=== PATIENT | male | born 1930 | race Caucasian/White ===

== ENCOUNTER 2017-01-30 16:05 | Inpatient (IN) | payer MEDICARE, OTHER ==
[~2017-01-30] VITALS: Ht 177.8 cm; Wt 67.1 kg
[2017-01-30 16:30] VITALS: BP 121/75
[2017-01-30] MEDS ORDERED: MAG HYDROX/AL HYDROX/SIMETH 30 ML UDC PO PRN (16:30)
[2017-01-30] MEDS ORDERED: MAGNESIUM HYDROXIDE 30 ML UDC PO PRN (16:30)
[2017-01-30 17:04] VITALS: BP 121/75
--- NOTE | 2017-01-30 18:40 | NUR ---
[employer]PS HVAC SALES REPRESENTATIVE NOTES: ADMITTED THIS 86 Y/O MALE FROM [facility]. PATIENT ARRIVED TO THE UNIT ON A GURNEY AT 1630. PATIENT IS ON 5150 HOLD FOR GD. PATIENT HAS BEEN INCREASINGLY AGITATED AND STRIKING AT . PATIENT IS A/O X1, CONFUSED AND DISORIENTED, REQUIRES FREQUENT REDIRECTION. PATIENT IS AMBULATORY, HOWEVER, INCONTINENT. VSS AT THE TIME OF ADMISSION, NO ACUTE DISTRESS. PATIENT IS COOPERATIVE WITH ASSESSMENT AND PHOTOS. PATIENT IS UNABLE TO PROVIDE ANY HISTORY DUE TO ALTERED MENTAL STATUS. PATIENT'S GUILLERMO IS PRESENT AT THE TIME OF THE ADMISSION AND STATES THAT PATIENT WAS DIAGNOSED WITH DEMENTIA IN 2008. NO OTHER MEDICAL PROBLEMS REPORTED, NO PREVIOUS HOSPITALIZATIONS REPORTED. DR. JAMISON NOTIFIED WITH ADMITTING ORDERS. DR. MULLEN NOTIFIED OF THIS ADMISSION. PATIENT'S BELONGINGS CHECKED FOR CONTRABAND, PATIENT ORIENTED TO THE UNIT AND HIS ROOM. MRSA SWAB OBTAINED AND ORDERED. WILL CONTINUE TO MONITOR Q 15 MIN FOR SAFETY AND BEHAVIOR AND ENDORSE TO THE UPCOMING SHIFT ACCORDINGLY.
[2017-01-30 20:00] VITALS: BP 142/84
[2017-01-30] MEDS: clonazePAM 0.5 MG TABLET PO PRN (20:25)
[2017-01-30] MEDS: TEMAZEPAM 7.5 MG CAPSULE PO PRN (21:19)
[2017-01-31 06:57] LABS: ALANINE AMINOTRANSFERASE 22 U/L (12-78); ALBUMIN 3.6 g/dL (3.4-5.0); ALKALINE PHOSPHATASE 74 U/L (46-116); ASPARTATE AMINOTRANSFERASE 18 U/L (15-37); BILIRUBIN,TOTAL 0.5 mg/dL (0.2-1.0); CALCIUM, SERUM 8.8 mg/dL (8.5-10.1); CARBON DIOXIDE 30 mmol/L (21-32); CHLORIDE 103 mmol/L (98-107); CREATININE 0.9 mg/dL (0.6-1.3); GLUCOSE 122 mg/dL (74-106); POTASSIUM 3.7 mmol/L (3.5-5.1); SODIUM SERUM 140 mmol/L (136-145); TOTAL PROTEIN, SERUM 7.5 g/dL (6.4-8.2); UREA NITROGEN, BLOOD 25 mg/dL (7-18)
[2017-01-31 06:59] LABS: CHOLESTEROL 181 mg/dL (<200); HDL CHOLESTEROL 45 mg/dL (40-60); LDL 106 mg/dL (0-99); TRIGLYCERIDES 90 mg/dL (30-150)
[2017-01-31 07:53] VITALS: BP 112/67
[2017-01-31] MEDS ORDERED: QUETIAPINE FUMARATE 25 MG TABLET PO PRN (11:30)
[2017-01-31 16:07] VITALS: BP 138/66
[2017-01-31] MEDS: Z GUARD REMEDY 2 OZ OINT TP SCH (16:34)
[2017-01-31] MEDS: GABAPENTIN 100 MG CAPSULE PO SCH (17:40)
--- NOTE | 2017-01-31 19:45 | NUR ---
GPS/TILTING HEAD BAND SAWYER; RECEIVED PT IN BED SLEEPING. BREATHING NON LABORED AND EVEN. NO S/S DISTRESS. BED ON LOWER POSITION AND LOCKED FOR SAFETY. SIDE RAILS ARE UP FOR SAFETY. WILL CONTINUE TO MONITOR.
[2017-01-31 20:00] VITALS: BP 142/76
--- NOTE | 2017-01-31 20:10 | NUR ---
GPS/TEST DESK TROUBLE LOCATOR; FEMALE SITTER PRESENT AT THE BEDSIDE FOR SAFETY. INCONTINENT OF URINE PERINEAL CARE DONE BY SITTER AND DESTINEE PER CHANGED.
[2017-02-01 07:01] LABS: BASOPHILS % (AUTO) 0.6 % (0.0-2.0); EOSINOPHILS # (AUTO) 0.3 /CMM (0.0-0.7); EOSINOPHILS % (AUTO) 3.8 % (0.0-6.0); HEMATOCRIT 38 % (39-51); HEMOGLOBIN 12.9 g/dL (13.5-17.5); LYMPHOCYTES # (AUTO) 1.4 /CMM (0.8-4.8); LYMPHOCYTES % (AUTO) 18.3 % (20.0-44.0); MEAN CORPUSCULAR HEMOGLOBIN 31 PG (26.0-33.0); MEAN CORPUSCULAR HGB CONC 34 g/dl (31.0-36.0); MEAN CORPUSCULAR VOLUME 93 fL (80-96); MONOCYTES # (AUTO) 0.8 /CMM (0.1-1.30); MONOCYTES % (AUTO) 10.3 % (2.0-12.0); NEUTROPHILS # (AUTO) 5.2 /CMM (1.8-8.9); PLATELET COUNT (AUTO) 224 /CMM (150-450); RDW COEFFICIENT OF VARIATION 14.3 (11.5-15.0); RED BLOOD CELL COUNT(AUTO) 4.12 MIL/uL (4.5-6.0); WHITE BLOOD COUNT (AUTO) 7.8 K/uL (4.3-11.0)
[2017-02-01 07:50] LABS: ALANINE AMINOTRANSFERASE 20 U/L (12-78); ALBUMIN 2.9 g/dL (3.4-5.0); ALKALINE PHOSPHATASE 66 U/L (46-116); ASPARTATE AMINOTRANSFERASE 20 U/L (15-37); BILIRUBIN,TOTAL 0.4 mg/dL (0.2-1.0); CALCIUM, SERUM 8.4 mg/dL (8.5-10.1); CARBON DIOXIDE 30 mmol/L (21-32); CHLORIDE 108 mmol/L (98-107); CREATININE 0.8 mg/dL (0.6-1.3); GLUCOSE 84 mg/dL (74-106); MAGNESIUM 1.9 mg/dL (1.8-2.4); POTASSIUM 3.9 mmol/L (3.5-5.1); SODIUM SERUM 143 mmol/L (136-145); TOTAL PROTEIN, SERUM 6.4 g/dL (6.4-8.2); UREA NITROGEN, BLOOD 17 mg/dL (7-18)
[2017-02-01 08:00] VITALS: BP 130/52
[2017-02-01] MEDS: GABAPENTIN 100 MG CAPSULE PO SCH ×2 (08:15→17:37)
--- NOTE | 2017-02-01 08:16 | NUR ---
ADMINISTERED SEROQUEL 12.5 MG PO PRN FOR DEPRESSION, CONTINUED MONITORING.
[2017-02-01] MEDS: Z GUARD REMEDY 2 OZ OINT TP SCH (08:33)
[2017-02-01 16:10] VITALS: BP 145/82
[2017-02-01 20:04] VITALS: BP 154/67
[2017-02-01] MEDS: TEMAZEPAM 7.5 MG CAPSULE PO PRN (21:46)
[2017-02-02 08:00] VITALS: BP 124/57
[2017-02-02] MEDS: Z GUARD REMEDY 2 OZ OINT TP SCH (08:26)
[2017-02-02] MEDS: GABAPENTIN 100 MG CAPSULE PO SCH ×2 (08:26→17:28)
[2017-02-02 16:00] VITALS: BP 110/55
--- NOTE | 2017-02-02 16:08 | NUR ---
Initial discharge plan: Pt. is a resident at [facility] # at [address] [place] [address] and will return there upon discharge. KAYLA spoke with Ana, facility precinct captain, and she is able to accept him back as long as pt. is stabilized. KAYLA spoke with pt's , Evon [phone] and Ana agrees with the discharge plan. KAYLA will follow up with MD and family and will help form a safe and proper discharge.
[2017-02-02] MEDS: ACETAMINOPHEN 325 MG TABLET PO PRN (21:26)
[2017-02-02] MEDS: TEMAZEPAM 7.5 MG CAPSULE PO PRN (21:26)
[2017-02-02 22:25] VITALS: BP 146/68
[2017-02-03 08:00] VITALS: BP 101/52
[2017-02-03] MEDS: GABAPENTIN 100 MG CAPSULE PO SCH ×2 (08:27→16:50)
[2017-02-03] MEDS: Z GUARD REMEDY 2 OZ OINT TP SCH (09:03)
[2017-02-03] MEDS: clonazePAM 0.5 MG TABLET PO PRN (14:52)
--- NOTE | 2017-02-03 14:56 | NUR ---
RESISTOR TESTING MACHINE OPERATOR-NOTES NOTED PATIENT VERY ANXIOUS GETTING OUT THE CHAIR BED UNASSISTED,UNABLE TO REDIRECT. KLONOPIN 0.25 MG P.O GIVEN PRN ORDER. WILL CONT. 1:1 MONITORING FOR SAFETY AND BEHAVIOR.
[2017-02-03 16:00] VITALS: BP 142/81
[2017-02-03 21:08] VITALS: BP 138/74
[2017-02-03] MEDS: TEMAZEPAM 7.5 MG CAPSULE PO PRN (22:17)
[2017-02-04 07:58] VITALS: BP 112/59
[2017-02-04] MEDS: Z GUARD REMEDY 2 OZ OINT TP SCH (08:09)
[2017-02-04] MEDS: GABAPENTIN 100 MG CAPSULE PO SCH ×2 (08:09→16:42)
--- NOTE | 2017-02-04 11:16 | NUR ---
[id number]-[id number]: NOTIFIED DR. ALFRED FOR PT EVALUATION ORDER DUE TO UNSTEADY GAIT. ORDERED PLACED AND CALLED PT TO COME ASSESS PT.
[2017-02-04 16:08] VITALS: BP 151/66
[2017-02-04 20:03] VITALS: BP 138/68
[2017-02-04] MEDS: TEMAZEPAM 7.5 MG CAPSULE PO PRN (21:45)
[2017-02-05 07:12] LABS: BASOPHILS % (AUTO) 0.8 % (0.0-2.0); EOSINOPHILS # (AUTO) 0.3 /CMM (0.0-0.7); EOSINOPHILS % (AUTO) 4.8 % (0.0-6.0); HEMATOCRIT 36 % (39-51); HEMOGLOBIN 12.5 g/dL (13.5-17.5); LYMPHOCYTES # (AUTO) 1.3 /CMM (0.8-4.8); LYMPHOCYTES % (AUTO) 23.7 % (20.0-44.0); MEAN CORPUSCULAR HEMOGLOBIN 32 PG (26.0-33.0); MEAN CORPUSCULAR HGB CONC 35 g/dl (31.0-36.0); MEAN CORPUSCULAR VOLUME 92 fL (80-96); MONOCYTES # (AUTO) 0.5 /CMM (0.1-1.30); MONOCYTES % (AUTO) 9.7 % (2.0-12.0); NEUTROPHILS # (AUTO) 3.5 /CMM (1.8-8.9); PLATELET COUNT (AUTO) 209 /CMM (150-450); RDW COEFFICIENT OF VARIATION 14.5 (11.5-15.0); RED BLOOD CELL COUNT(AUTO) 3.89 MIL/uL (4.5-6.0); WHITE BLOOD COUNT (AUTO) 5.7 K/uL (4.3-11.0)
[2017-02-05 07:37] LABS: CALCIUM, SERUM 8.4 mg/dL (8.5-10.1); CARBON DIOXIDE 26 mmol/L (21-32); CHLORIDE 108 mmol/L (98-107); CREATININE 0.8 mg/dL (0.6-1.3); GLUCOSE 90 mg/dL (74-106); POTASSIUM 3.9 mmol/L (3.5-5.1); SODIUM SERUM 141 mmol/L (136-145); UREA NITROGEN, BLOOD 17 mg/dL (7-18)
[2017-02-05 08:00] VITALS: BP 120/55
[2017-02-05] MEDS: GABAPENTIN 100 MG CAPSULE PO SCH ×2 (08:52→16:40)
[2017-02-05] MEDS: Z GUARD REMEDY 2 OZ OINT TP SCH (08:54)
[2017-02-05 16:00] VITALS: BP 139/56
--- NOTE | 2017-02-05 19:00 | NUR ---
GPS RN INITIAL NOTE PT RECEIVED IN BED, NO S/S OF RESPIRATORY DISTRESS OR SOB. SAFE ENVIRONMENT PROVIDED FREE OF CLUTTERS. .BED IN LOCKED, LOW POSITION. CALL LIGHT WITHIN EASY REACH. WILL CONTINUE TO MONITOR.
[2017-02-05 20:00] VITALS: BP 130/73
[2017-02-05] MEDS: TEMAZEPAM 7.5 MG CAPSULE PO PRN (23:30)
--- NOTE | 2017-02-06 06:24 | NUR ---
GPS RN CLOSING NOTES PATIENT COMFORTABLY ASLEEP AND EASILY AWAKEN, HEAD OF BED ELEVATED FOR BETTER LUNG EXPANSION TOLERATING ROOM AIR 02 SAT AT 98% NOT APPARENT DISTRESS. AFEBRILE, ALL NURSING CARE NEEDS PROVIDED AND RENDERED, NEEDS ATTENDED AND ANTICIPATED, KEPT CLEAN AND DRY AND COMFORTABLE, GOOD SKIN CARE PROVIDED. FREQUENT VISUAL CHECK DONE FOR SAFETY PER GPS PROTOCOL. SAFE HAZARD FREE ENVIRONMENT PROVIDED. CALL LIGHT WITHIN EASY TO REACH, ON LOW BED AT ALL TIMES TO ENSURE SAFETY, WILL ENDORSE TO THE NEXT SHIFT CONTINUE PLAN OF CARE.
[2017-02-06 08:00] VITALS: BP 115/52
[2017-02-06] MEDS: GABAPENTIN 100 MG CAPSULE PO SCH ×2 (09:40→16:17)
[2017-02-06] MEDS: Z GUARD REMEDY 2 OZ OINT TP SCH (09:40)
[2017-02-06 16:06] VITALS: BP 129/71
[2017-02-06 19:32] VITALS: BP 147/73
[2017-02-06] MEDS: TEMAZEPAM 7.5 MG CAPSULE PO PRN (21:21)
[2017-02-06] MEDS: ACETAMINOPHEN 325 MG TABLET PO PRN (21:21)
[2017-02-07 08:00] VITALS: BP 116/59
[2017-02-07] MEDS: GABAPENTIN 100 MG CAPSULE PO SCH ×2 (08:44→17:23)
[2017-02-07] MEDS: Z GUARD REMEDY 2 OZ OINT TP SCH (08:45)
[2017-02-07] MEDS ORDERED: QUETIAPINE FUMARATE 25 MG TABLET PO PRN (09:00)
[2017-02-07 16:19] VITALS: BP 137/65
[2017-02-07 20:00] VITALS: BP 145/80
[2017-02-07] MEDS: TEMAZEPAM 7.5 MG CAPSULE PO PRN (21:28)
[2017-02-08] MEDS: clonazePAM 0.5 MG TABLET PO PRN (01:53)
[2017-02-08 08:00] VITALS: BP 116/61
[2017-02-08] MEDS: GABAPENTIN 100 MG CAPSULE PO SCH ×2 (09:20→17:17)
[2017-02-08] MEDS: Z GUARD REMEDY 2 OZ OINT TP SCH (09:20)
[2017-02-08 20:59] VITALS: BP 109/88
[2017-02-09 08:00] VITALS: BP 122/52
[2017-02-09] MEDS: GABAPENTIN 100 MG CAPSULE PO SCH ×2 (09:10→17:30)
[2017-02-09] MEDS: Z GUARD REMEDY 2 OZ OINT TP SCH (09:13)
[2017-02-09 16:00] VITALS: BP 122/59
[2017-02-09 20:18] VITALS: BP 141/71
[2017-02-09] MEDS: TEMAZEPAM 7.5 MG CAPSULE PO PRN (21:44)
[2017-02-09] MEDS: ACETAMINOPHEN 325 MG TABLET PO PRN (21:45)
[2017-02-10 08:00] VITALS: BP 118/57
[2017-02-10] MEDS: Z GUARD REMEDY 2 OZ OINT TP SCH (09:14)
[2017-02-10] MEDS: GABAPENTIN 100 MG CAPSULE PO SCH (09:14)
--- NOTE | 2017-02-10 12:15 | NUR ---
KAYLA spoke with Ana from [facility] # [place] [address] [place] [address] and she reported that per , pt is not ready to be discharged. KAYLA informed Ana that per psychiatrist, pt is cleared and can be discharged, and if needed she could come assess the patient. Ana was unhappy and was not pleasant on the phone and stated that doctor needs to speak with her or the of the patient. KAYLA reassured Ana that when doctor comes he will be asked to speak with pt's , Evon [phone] but we need to know if she is able to accept the patient since the doctor discharges him today. Ana said "speak with the " and hang up the phone.
--- NOTE | 2017-02-10 12:17 | NUR ---
KAYLA left a voicemail for pt's , Evon [phone] notifying her of the new update. KAYLA told Evon that pt. cannot be sent to the board and care and social science teacher will look for alternate placement.
--- NOTE | 2017-02-10 12:18 | NUR ---
Pt. was referred and accepted to [facility] [address] [facility] [address]; [phone] per Bonifacio at the facility. KAYLA left a voicemail to the pt's , Evon [phone] notifying her of the acceptance and asking for approval. KAYLA will follow up
--- NOTE | 2017-02-10 14:16 | NUR ---
KAYLA called pt's , Evon [phone] again and she is still unavailable. SW left two voice messages. will follow up
[2017-02-10 16:00] VITALS: BP 108/50
--- NOTE | 2017-02-10 16:00 | NUR ---
DAYCARE TEACHER NOTE :PATIENT ALERT , VS STABLE ,DENIES SI/HI/AVH .PATIENT SEEN BY AND DR. NAVA .REPORT GIVEN TO LESLIE IN [facility],PATIENT REFUSED DISCHARGE PHOTO .ALL BELONGINGS RETURNED TO PATIENT NO S/S OF DISTRESS.PATIENT DISCHRAGED WITH AMBULANCE .
--- NOTE | 2017-02-10 16:02 | NUR ---
KAYLA spoke with pt's Evon [phone] three times. Evon was notified of pt's admission to [address] [address]; [phone] . Evon agreed with the plan. Pt however, requested to refer her to [facility] [address] [facility] [address]
--- NOTE | 2017-02-10 16:12 | NUR ---
Evon [phone] requested that pt. be referred to [facility] [id number] but per Bertha at the facility, they had no male bed availability.
--- NOTE | 2017-02-10 16:13 | NUR ---
Evon [phone] agreed for pt. to be discharged to [facility] [address] [facility] [address]; [phone]. She was disappointed that pt. could not be discharged to [facility] which was closer to her but agreed with the discharge to [facility]. She was provided with all information to the facility.
--- NOTE | 2017-02-10 16:16 | NUR ---
Discharge note: Pt. was discharged to [address] [address]; [phone] and , Evon [phone] was notified and agreed with the plan. Pt. will follow up with psychiatrist Dr. Araiza at the facility tomorrow at 11:00AM where he can discuss alcohol dependency. Discharge paperwork has been signed, discharge instructions have been provided to the accepting facility. Pt. was calm and cooperative, denied suicidal/homicidal ideations.
== END 2017-02-10 16:00 | DRG 885 ==
LOC: GPS 16:05
PROVIDERS: ADMIT Psychiatry & Neurology Psychiatry; ATTEND Internal Medicine
DX: F29 Unspecified psychosis not due to a substance or known physiological condition (principal); F02.80 Dementia in other diseases classified elsewhere, unspecified severity, without behavioral disturbance, psychotic disturbance, mood disturbance, and anxiety; N17.0 Acute kidney failure with tubular necrosis; Z73.6 Limitation of activities due to disability; E86.0 Dehydration; G30.9 Alzheimer's disease, unspecified; D63.8 Anemia in other chronic diseases classified elsewhere; K21.9 Gastro-esophageal reflux disease without esophagitis
CPT/HCPCS: 36415; 71010-TC; 80048-TC; 80053-TC; 80061-TC; 82962-TC; 83735-TC; 85025-TC; 87081-TC; 97001-TC